=== PATIENT | male | born 1935 | race Caucasian/White ===

== ENCOUNTER 2016-12-11 08:23 | Inpatient (IN) | payer OTHER, MEDICARE ==
--- NOTE | 2016-12-11 08:31 | EDPHY ---
H & P Stated Complaint: cp/epigastric pain ksince last night Time Seen by Provider: 12/11/16 08:30 HPI/ROS: CHIEF COMPLAINT: Epigastric pain. HISTORY OF PRESENT ILLNESS: The patient is an 81-year-old male with an extensive cardiac history who presents with epigastric pain and since 0330 this morning. He has also had worsening exertional shortness of breath since having a cold a few weeks ago that included cough, chest pain, and fever. These symptoms have since resolved. Today he admits associated peripheral edema. No fever, chills, palpitations, vomiting, diarrhea, urinary complaints, headache, lightheadedness. He is anticoagulated on Coumadin. 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 He is awaiting the results of this. REVIEW OF SYSTEMS: Aside from elements discussed in the HPI, a comprehensive 10-point review of systems was reviewed and is negative. PAST MEDICAL HISTORY: Chronic atrial fibrillation, CAD, systolic and diastolic CHF, 5 cardiac stents, left foot amputation. 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 VITAL SIGNS: Reviewed by me. Respiratory rate on monitor while sitting and talking 32-36. GENERAL: Well-developed, well-nourished, resting comfortably in no respiratory distress. HEENT: Atraumatic. Eyes: No icterus, no injection. Mouth: moist mucous membranes. No erythema or lesions. Neck: supple with no adenopathy. LUNGS: Tachypneic. Crackles bibasilarly, right worse than left. No wheezes, rhonchi or rales. CARDIAC: Irregularly irregular, no rubs, murmurs or gallops. ABDOMEN: Soft, nondistended, bowel sounds normal. Epigastric and RUQ tenderness to deep palpation. BACK: No CVA tenderness. EXTREMITIES: No trauma. Range of motion is normal throughout. Right lower extremity: 1+ pitting edema to mid-calf. Left lower extremity: thigh more swollen than the right: L 45cm R 44.5cm. Prosthetic left foot and ankle. NEURO: Alert and oriented, grossly nonfocal. SKIN: Warm and dry, no rash. PSYCHIATRIC: Normal mentation, no agitation. Portions of this note were transcribed by a medical instructor. I personally performed a history, physical exam, medical decision making, and confirmed accuracy of information the transcribed note. Source: Patient Exam Limitations: No limitations - Personal History Current Tetanus/Diphtheria Vaccine: Yes Tetanus Vaccine Date: < 10 years - Medical/Surgical History Hx Asthma: No Hx Chronic Respiratory Disease: No Hx Diabetes: No Hx Cardiac Disease: Yes Hx Renal Disease: No Hx Cirrhosis: No Hx Alcoholism: No Hx HIV/AIDS: No Hx Splenectomy or Spleen Trauma: No Other PMH: [place], Stents, Carotid surg, hip replacement, Foot amputation, HTN, right leg fracture 08/12/15 - Social History Smoking Status: Never smoked Constitutional: Initial Vital Signs Temperature (C) 36.3 C 12/11/16 08:26 Heart Rate 94 12/11/16 08:26 Respiratory Rate 18 12/11/16 08:26 Blood Pressure 161/110 H 12/11/16 08:26 O2 Sat (%) 94 12/11/16 08:26 O2 Delivery Mode Room Air Allergies/Adverse Reactions: Penicillins Allergy (Intermediate, Verified 12/11/16 08:25) BLISTERS Home Medications: Medication Instructions Recorded Aspirin EC [Aspirin EC 81 mg (*)] 81 mg PO DAILY 01/18/15 Clopidogrel Bisulfate [Plavix (*)] 75 mg PO DAILY 01/18/15 Omeprazole [Prilosec 20 mg] 20 mg PO DAILY 01/18/15 Warfarin Sodium [Coumadin 2.5MG 1.25 mg PO FR@2100 01/18/15 (*)] Warfarin Sodium [Coumadin 2.5MG 2.5 mg PO SUMOTUWETHSA@21 01/18/15 (*)] Furosemide [Lasix 20 MG (*)] 20 mg PO DAILY #30 tab 12/13/16 Lisinopril [Zestril 10 mg (*)] 10 mg PO DAILY #30 tab 12/13/16 Metoprolol Tartrate [Lopressor 25 25 mg PO BID #60 tab 12/13/16 mg (*)] Nitroglycerin [Nitrostat 0.4 mg 0.4 mg SL PRN PRN #30 btl 12/13/16 (*)] Spironolactone [Aldactone 25 MG 25 mg PO DAILY #30 tab 12/13/16 (*)] Medical Decision Making - Diagnostics EKG Interpretation: 12-LEAD EKG: Please see the full report in [facility]. My interpretation: Atrial fibrillation, rate 111. Imaging: X-ray chest was obtained. I viewed the images myself on the PACS system. The radiologist interpretation is: Cardiomegaly with bibasilar subsegmental atelectasis and tiny pleural effusions. I discussed the x-ray findings with the patient. ED Course/Re-evaluation: An IV was established and labs ordered. Chest x-ray and EKG obtained. Troponin elevated today at 0.038. BNP elevated at 8090. 40mg IV Lasix administered. Hospitalist paged. [phone]: Consulted with hospitalist. Dr. Garcia accepts admission. Differential Diagnosis: After history and physical examination, the differential for chest pain was considered, including but not limited to, myocardial ischemia, acute coronary syndrome, pulmonary embolus, chest wall pain, pleural inflammation and pulmonary infectious causes. Differential diagnosis for the patient's shortness of breath was considered including but not limited to pulmonary infectious processes, COPD exacerbation, pulmonary emboli, pulmonary edema, congestive heart failure, and cardiac causes. Consult/Admit Bed Type: Dr Garcia, U - Data Points Laboratory Results: Laboratory Results 12/11/16 08:35 12/11/16 08:35 Medications Given: Discontinued Medications Aspirin Buffered (Aspirin Ec) 81 mg PO DAILY [facility] Stop: 06/10/17 08:59 Last Admin: 12/13/16 07:58 Dose: 81 mg Aspirin Buffered (Aspirin Ec) 325 mg PO ONCALL ONE Stop: 12/12/16 09:57 Last Admin: 12/12/16 12:42 Dose: Not Given Clopidogrel Bisulfate (Plavix) 75 mg PO DAILY [facility] Stop: 06/10/17 08:59 Last Admin: 12/13/16 07:58 Dose: 75 mg Diazepam (Valium) 5 mg PO ONCALL ONE Stop: 12/12/16 09:57 Last Admin: 12/12/16 12:42 Dose: Not Given Diphenhydramine HCl (Benadryl) 25 mg PO ONCALL ONE Stop: 12/12/16 09:57 Last Admin: 12/12/16 12:42 Dose: Not Given Furosemide (Lasix Injection) 40 mg IVP EDNOW ONE Stop: 12/11/16 09:28 Last Admin: 12/11/16 09:41 Dose: 40 mg Furosemide (Lasix) 40 mg PO DAILY [facility] Stop: 06/10/17 12:59 Last Admin: 12/13/16 07:58 Dose: 40 mg Hydralazine HCl (Apresoline) 10 mg PO Q8H PRN PRN Reason: htn Stop: 06/09/17 11:29 Last Admin: 12/11/16 12:42 Dose: 10 mg Lisinopril (Zestril) 2.5 mg PO DAILY [facility] Stop: 06/10/17 08:59 Last Admin: 12/12/16 09:42 Dose: 2.5 mg Lisinopril (Zestril) 10 mg PO DAILY [facility] Stop: 06/10/17 08:59 Last Admin: 12/13/16 07:58 Dose: 10 mg Lisinopril (Zestril) 7.5 mg PO ONCE ONE Stop: 12/12/16 14:01 Last Admin: 12/12/16 15:29 Dose: 7.5 mg Metoprolol Tartrate (Lopressor) 25 mg PO BID [facility] Stop: 06/09/17 20:59 Last Admin: 12/13/16 07:58 Dose: 25 mg Miscellaneous Medication (Gi Cocktail) 55 ml PO ONCE ONE Stop: 12/11/16 10:44 Last Admin: 12/11/16 11:20 Dose: 55 ml Pantoprazole Sodium (Protonix) 40 mg PO DAILY [facility] Stop: 06/10/17 08:59 Last Admin: 12/13/16 07:59 Dose: 40 mg Warfarin Sodium (Coumadin) 2.5 mg PO SUMOTUWETHSA@21 [facility] Stop: 06/09/17 20:59 Last Admin: 12/12/16 19:26 Dose: 2.5 mg Departure - Departure Disposition: [facility] Acute Clinical Impression: Pleural effusion, Elevated troponin, Elevated brain natriuretic peptide (BNP) level, Cardiomegaly Condition: Fair Report Scribed for: Lady Madrigal Report Scribed by: Aurelio Flores Date of Report: 12/11/16 Time of Report: 08:38
--- NOTE | 2016-12-11 08:38 | CPEKG ---
Heart Rate: 111 RR Interval: 541 QRSD Interval: 90 QT Interval: 376 QTC Interval: 511 QRS Roxana: 62 T Wave Roxana: 48 EKG Severity - ABNORMAL ECG - EKG Impression: ATRIAL FIBRILLATION, V-RATE 90-135 EKG Impression: PROLONGED QT INTERVAL Electronically Signed By: Lady Madrigal 12-Dec-2016 16:26:28
[2016-12-11 08:52] LABS: % IMMATURE GRANULYOCYTES 0.2 % (0.0-1.1); ABSOLUTE IMMATURE GRANULOCYTES 0.01 10^3/uL (0.00-0.10); ADD DIFF? NO; ADD MORPH? NO; ADD SCAN? NO; ATYPICAL LYMPHOCYTE FLAG 0 (0-99); FRAGMENT RBC FLAG 0 (0-99); HEMATOCRIT 44.4 % (40.0-51.0); HEMOGLOBIN 14.5 g/dL (13.7-17.5); LEFT SHIFT FLG 0 (0-99); LIPEMIA HEMOLYSIS FLAG 80 (0-99); MEAN CELL HEMOGLOBIN 31.7 pg (27.9-34.1); MEAN CELL HEMOGLOBIN CONCENTR. 32.7 g/dL (32.4-36.7); MEAN CELL VOLUME 97.2 fL (81.5-99.8); MEAN PLATELET VOLUME 11.3 fL (8.7-11.7); PLATELET CLUMPS FLAG 30 (0-99); PLATELET COUNT 130 10^3/uL (150-400); RED BLOOD CELL COUNT 4.57 10^6/uL (4.40-6.38); RED CELL DISTRIBUTION WIDTH 15.1 % (11.5-15.2)
[2016-12-11 09:01] LABS: ALANINE AMINOTRANSFERASE 34 IU/L (21-72); ALBUMIN 4.4 g/dL (3.5-5.0); ALKALINE PHOSPHATASE 75 IU/L (38-126); ANION GAP 15 mEq/L (8-16); ASPARTATE AMINOTRANSFERASE 31 IU/L (17-59); BILIRUBIN,TOTAL 1.7 mg/dL (0.1-1.4); BILIRUBIN-CONJUGATED 0.6 mg/dL (0.0-0.5); BILIRUBIN-UNCONJUGATED 1.1 mg/dL (0.0-1.1); CALCIUM 9.3 mg/dL (8.5-10.4); CARBON DIOXIDE 21 mEq/l (22-31); CHLORIDE 106 mEq/L (97-110); CREATININE 0.9 mg/dL (0.7-1.3); GLOMERULAR FILTRATION RATE > 60; GLUCOSE 99 mg/dL (70-100); POTASSIUM 4.6 mEq/L (3.5-5.2); SODIUM 142 mEq/L (134-144); TOTAL PROTEIN 6.8 g/dL (6.3-8.2)
[2016-12-11 09:12] LABS: TROPONIN I 0.038 ng/mL (0-0.034)
[2016-12-11] MEDS ORDERED: FUROSEMIDE 40 MG/4 ML VIAL IVP ONE (09:27)
[2016-12-11] MEDS ORDERED: ACETAMINOPHEN 325 MG TAB PO PRN (10:11)
[2016-12-11] MEDS ORDERED: ONDANSETRON 4 MG/2 ML VIAL IVP PRN (10:11)
[2016-12-11] MEDS ORDERED: ONDANSETRON DISINTEGRATING 4 MG TAB PO PRN (10:11)
[2016-12-11 10:36] LABS: INR 2.42 (0.83-1.16); PROTIME(PATIENT) 26.6 SEC (12.0-15.0)
[2016-12-11 10:37] LABS: APTT 38.3 SEC (23.0-38.0)
[2016-12-11] MEDS ORDERED: MAALOX/LIDO/HYOSC GI COCKTAIL 55 ML BOTTLE PO ONE (10:43)
[2016-12-11] MEDS ORDERED: MAALOX/LIDO/HYOSC GI COCKTAIL 55 ML BOTTLE ONE (11:16)
[2016-12-11] MEDS ORDERED: hydrALAZINE 10 MG TAB PO PRN ×2 (11:21→20:40)
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
[2016-12-11] MEDS ORDERED: FUROSEMIDE 40 MG/4 ML VIAL IVP SCH (15:00)
--- NOTE | 2016-12-11 15:18 | ECHO ---
[id number] + + [address] : : [place] [address] : : [phone] + Adult Echocardiographic Report + ----+ :Name: FLORESRANDALADDY GStudy Date: 12/11/2016 02:09 PM : : Hospital Admission Number: [id number] Location: 205: :: 1935 Gender: Male Height: 72 in : :Age: 81 yrs Race: WH Weight: 161 lb : :Reason For Study: New LE edema : : BSA: 1.9 meters2 : :History: CAD : + ----+ MMode/2D Measurements \T\ Calculations IVSd: 1.2 cm RVDd: 3.6 cm FS: 14.7 % MV Diam: 2.9 cm LVPWd: 1.3 cm LVIDd: 5.3 cm EDV(Teich): 133.4 ml LVIDs: 4.5 cm ESV(Teich): 92.0 ml EF(Teich): 31.0 % LVOT diam: 2.1 cm LVLd ap4: 7.0 cm SV(MOD-sp4): 36.0 ml LVOT area: 3.5 cm2EDV(MOD-sp4): 102.0 ml LVLs ap4: 6.4 cm ESV(MOD-sp4): 66.0 ml EF(MOD-sp4): 35.3 % Normal Measurement Values: + + :LVIDd (3.5-5.7cm) IVSd (0.6-1.1cm) LVPWd (0.6-1.1cm) Aortic Root (2.0-3.7cm)Left Atrium (1.5-4.0cm): :LV Vol(d) (76-115ml) LV Vol(s) (29-48ml) Ejec Fraction (50-65%)PV Jose A (0.6- 1.2m/s) TV Jose A (0.4-1.0m/s) : :MV E Jose A (0.8-1.0m/s)MV A Jose A (0.3-1.0m/s)LVOT Jose A (0.7-1.2m/s) Asc Ao Jose A ( 0.9-1.8m/s) : + + Doppler Measurements \T\ Calculations MV E max jose a: MV V2 max: Ao mean PG: LV V1 mean P.1 cm/sec 83.3 cm/sec 1.0 mmHg 0.82 mmHg MV dec time: MV max P.8 mmHg Ao V2 mean: LV V1 mean: 0.11 sec MV V2 mean: 48.6 cm/sec 42.7 cm/sec 48.5 cm/sec Ao V2 VTI: 12.3 cmLV V1 VTI: MV mean P.1 mmHg DAYANA(I,D): 3.1 cm2 11.0 cm MV V2 VTI: 16.9 cm MV area (1 diam): 6.4 cm2 MVA(VTI): 2.3 cm2 MV Flow area(1diam): 6.4 cm2 MR max jose a: MR(RF 1 diam): SV(MV 1 diam): PA V2 max: 504.1 cm/sec 24.4 % 108.3 ml 50.4 cm/sec MR max PG: SI(MV 1 diam): PA max P.7 mmHg 55.7 ml/m2 1.0 mmHg SV(LVOT): 38.6 ml PI end-d jose a: TR max jose a: RF(MV,LVOT) 190.0 cm/sec 252.5 cm/sec (1diam): 0.64 TR max P.5 mmHg RAP systole: 10.0 mmHg RVSP(TR): 35.5 mmHg Left Ventricle The left ventricle is borderline dilated. There is mild concentric left ventricular hypertrophy. Moderate to severely reduced LV systolic function with a LVEF of 30% and focal severe inferior-posterior hypokinesis. No LV thrombus seen. Right Ventricle Borderline right ventricular enlargement. The right ventricular systolic function is normal. Atria Moderate LAE noted. Severe KINGA noted. The interatrial septum is intact with no evidence for an atrial septal defect. Mitral Valve Borderline anterior MV prolapse with moderate to severe MR noted. There is no mitral valve stenosis. Tricuspid Valve The tricuspid valve is normal in structure and function. There is no tricuspid stenosis. Mild to moderate TR noted. Aortic Valve Mild aortic valve sclerosis. There is no aortic stenosis. There is no aortic insufficiency. Pulmonic Valve The pulmonic valve is normal in structure and function. There is no pulmonic valvular stenosis. Mild to moderate pulmonic valvular regurgitation. Great Vessels The aortic root is normal size. Pericardium/Pleural trivial pericardial effusion. Mild to moderate pleural effusion noted. Conclusion A complete two-dimensional transthoracic echocardiogram was performed (2D, M-mode, Doppler and color flow Doppler). 1)Moderate to severely reduced LV systolic function with a LVEF of 30% and focal wall motions as described above. 2)Mild concentric LVH noted. 3)Moderate left atrial and moderate to severe right atrial enlargement(s). 4)Aortic valve sclerosis without stenosis or insufficiency. 5)Borderline anterior MV prolapse with moderate to severe MR. 6)Mild to moderate TR noted. Unable to accurately assess PA pressures. 7)Mild to moderate PI noted. 8)Trivial pericardial effusion. 9)Mild to moderate pleural effusion. Final Reading Physician: Bernabe Torres electronically signed on 12/11/2016 03:17 PM Ordering Physician: Gardenia Garcia Performed By: Neal Kaufman, RDCS
[2016-12-11] MEDS: METOPROLOL TARTRATE 25 MG TAB PO SCH (20:00)
[2016-12-11] MEDS: WARFARIN SODIUM 2.5 MG TAB PO SCH (20:00)
[2016-12-11] MEDS ORDERED: METOPROLOL TARTRATE 25 MG TAB PO SCH ×2 (21:00)
[2016-12-12 05:31] LABS: INR 2.37 (0.83-1.16); PROTIME(PATIENT) 26.1 SEC (12.0-15.0)
[2016-12-12 05:36] LABS: ANION GAP 13 mEq/L (8-16); CALCIUM 9.2 mg/dL (8.5-10.4); CARBON DIOXIDE 25 mEq/l (22-31); CHLORIDE 105 mEq/L (97-110); CREATININE 1.2 mg/dL (0.7-1.3); GLOMERULAR FILTRATION RATE 58; GLUCOSE 87 mg/dL (70-100); MAGNESIUM 2.1 mg/dL (1.6-2.3); POTASSIUM 4.2 mEq/L (3.5-5.2); SODIUM 143 mEq/L (134-144)
--- NOTE | 2016-12-12 08:26 | CPEKG ---
Heart Rate: 102 RR Interval: 588 QRSD Interval: 88 QT Interval: 384 QTC Interval: 501 QRS [place]: 55 T Wave [place]: 43 EKG Severity - ABNORMAL ECG - EKG Impression: ATRIAL FIBRILLATION, V-RATE 84-138 EKG Impression: VENTRICULAR PREMATURE COMPLEX EKG Impression: PROLONGED QT INTERVAL Electronically Signed By: Lady Madrigal 12-Dec-2016 16:26:34
[2016-12-12] MEDS ORDERED: LISINOPRIL 2.5 MG TAB PO SCH (09:00)
[2016-12-12] MEDS ORDERED: NON-FORMULARY NEW DRUG (Omeprazole [Prilosec 20 Mg] 20 MG) PO SCH (09:00)
[2016-12-12] MEDS ORDERED: FUROSEMIDE 20 MG/2 ML VIAL IVP SCH (09:00)
[2016-12-12] MEDS: ASPIRIN EC 81 MG TAB PO SCH (09:41)
[2016-12-12] MEDS: CLOPIDOGREL BISULFATE 75 MG TAB PO SCH (09:42)
[2016-12-12] MEDS: PANTOPRAZOLE SODIUM 40 MG TAB PO SCH (09:42)
[2016-12-12] MEDS ORDERED: diphenhydrAMINE 25 MG CAP PO ONE (09:56)
[2016-12-12] MEDS ORDERED: DIAZEPAM 5 MG TAB PO ONE (09:56)
[2016-12-12] MEDS ORDERED: ASPIRIN EC 325 MG TAB PO ONE (09:56)
[2016-12-12] MEDS ORDERED: NITROGLYCERIN 0.4 MG BTL SL PRN ×2 (09:56→12:53)
[2016-12-12] MEDS ORDERED: TEMAZEPAM 15 MG CAP PO PRN (09:56)
[2016-12-12] MEDS ORDERED: LIDOCAINE 1% 30 ML SDV ONE (11:38)
[2016-12-12] MEDS ORDERED: VERAPAMIL 5 MG/2 ML VIAL ONE (11:39)
[2016-12-12] MEDS ORDERED: IOPAMIDOL (ISOVUE-370) 150 ML BTL IV ONE ×2 (11:39→12:31)
[2016-12-12] MEDS ORDERED: MIDAZOLAM 2 MG/2 ML VIAL ONE (11:39)
[2016-12-12] MEDS ORDERED: HEPARIN 10,000 UNIT/10 ML MDV ONE (11:39)
[2016-12-12] MEDS ORDERED: fentaNYL 100 MCG/2 ML INJ ONE (11:39)
[2016-12-12] MEDS ORDERED: DIAZEPAM 5 MG TAB ONE (11:44)
[2016-12-12] MEDS ORDERED: FAMOTIDINE 20 MG TAB ONE (11:44)
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
[2016-12-12] MEDS ORDERED: ATROPINE SULFATE 1 MG/10 ML SYR IVP PRN (12:53)
[2016-12-12] MEDS ORDERED: LISINOPRIL 10 MG TAB PO SCH (12:56)
[2016-12-12 13:06] LABS: CHOLESTEROL 128 mg/dL (140-220); CHOLESTEROL/HDL RATIO 3.56 RATIO (1.00-4.97); HIGH DENSITY LIPOPROTEIN 36 mg/dL (40-65); LDL/HDL RATIO 2.17 RATIO (1.00-3.64); LOW DENSITY LIPOPROTEIN 78 mg/dL (80-100); NON-HIGH DENSITY LIPOPROTEIN 92 mg/dL (90-129); TRIGLYCERIDE 74 mg/dL (40-150); VERY LOW DENSITY LIPOPROTEINS 14 mg/dL (8-25)
--- NOTE | 2016-12-12 13:14 | PDDXCAT ---
Diagnostic Cath Note - . Date: 12/12/16 Architectural Technician: Sixto Indication: Serial noninvasive testing w progressively worsening abnormalities High-risk criteria on non-invasive testing: severe resting left ventricular dysfunction (LVEF<35%) - Procedure Access: left wrist Procedure: left heart catheterization, coronary angiography, left ventriculogram - Materials Left Heart Cath size: 5F Left Heart Cath materials: JL3.5, JR4.0, pigtail Right Heart Cath size: 5F - Findings-Left Heart Catheterization LM: Normal caliber. Appropriate bifurcation into the left anterior descending and circumflex. No obstructive lesions. LAD: Moderate caliber. Transapical vessel. Single moderate-sized dagonal branch. Stents visualized in the proximal midportion. The diagonal branch is jailed by stent with a high-grade ostial lesion. LCX: Non dominant. 2 obtuse marginal branches. Diffuse luminal irregularities. Stents are visualized in the AV groove portion of the circumflex. Immediately prior to the proximal stent there is a 30% lesion. RCA: Dominant. Single PDA with a small posterolateral arcade. Diffuse proximal disease up to 50%. Midvessel stenosis up to 80%. Collaterals noted from the left system. EDP: 25 mmHg. LVEF: Severe global hypokinesis. Ejection fraction of 15-20%. Akinetic diaphragmatic segment. At least 3+ mitral insufficiency. Wall motion: As above. Estimated blood loss: <50ml Closure method: TR Band Assessment: 1. Diffuse epicardial coronary disease with previously placed stents in the LAD and circumflex that are widely patent. There is high-grade disease involving the ostial segment of a moderate caliber diagonal and the midportion of the right coronary artery. 2. Severe left ventricular dysfunction with an ejection fraction below 20% associated with severe global hypokinesis and akinesis of the diaphragmatic segment. 3. 3+ or greater mitral insufficiency. 4. Elevated end-diastolic pressure at 25 mmHg. Plan: At this point, the degree of LV dysfunction exceeds that of the obstructive coronary disease. Does have significant MR. Therefore, the decision was made to manage his coronary disease medically. We will further investigate his mitral insufficiency. Intervention: None. Patient Problems: Problems Problem Status Onset Chronic Disease Mgmt/Transitional Care Acute CAD (coronary artery disease) Acute Kidney stone on left side Acute Flank pain Acute Gross hematuria Acute C. difficile diarrhea Acute 12/21/15 Pleural effusion Acute Elevated troponin Acute Elevated brain natriuretic peptide (BNP) level Acute Cardiomegaly Acute
[2016-12-12] MEDS ORDERED: LISINOPRIL 2.5 MG TAB PO ONE (14:00)
[2016-12-12] MEDS: FUROSEMIDE 40 MG TAB PO SCH (15:29)
[2016-12-12] MEDS: METOPROLOL TARTRATE 25 MG TAB PO SCH ×2 (15:30→19:26)
--- NOTE | 2016-12-12 16:27 | HOSPPROG ---
Hospitalist Progress Note Assessment/Plan: #Decompensated systolic HF/severe MR -underwent cath today showing EF 20% and global hypokinesis -cont Lasix, BB, increased ACEI #CAD: LAD/LCx stents patent. High-grade disease of diagonal and mid-RCA. Medically manage CAD at this point. Cont ASA, statin, Plavix BB #LE edema: nearly resolved with diuresis #Accelerated HTN: Lisinopril increased today #RUQ/epigastric pain: LFTs WNL, U/S with gallstones, but no e/o cholecystitis. Would not opt for surgical intervention at this time with decompensated HF. FU surgery outpatient #GERD: PPI #Permanent atrial fibrillation: better rate-control with increase in BB. INR at goal #Diet: cardiac, 2L fluids #DVT ppx: on coumadin #Disp: warrants inpatient admission given acute hypoxia, decompensated HF requiring monitored diuresis, telemetry Subjective: No CP. SOB and LE swelling improved. Objective: Vital Signs Temp Pulse Resp BP Pulse Ox 36.5 C 77 14 147/99 H 98 12/12/16 08:00 12/12/16 15:30 12/12/16 15:18 12/12/16 15:30 12/12/16 15:18 Laboratory Results 12/12/16 04:08 12/11/16 12/12/16 12/13/16 05:59 05:59 05:59 Intake Total 500 Output Total 3665 475 Balance -3165 -475 PT 26.1 SEC (12.0-15.0) H 12/12/16 04:08 INR 2.37 (0.83-1.16) H 12/12/16 04:08 - Physical Exam Constitutional: no apparent distress Eyes: PERRL Ears, Nose, Mouth, Throat: moist mucous membranes, hearing normal Cardiovascular: irregularly irregular Respiratory: no respiratory distress, reduced air movement Gastrointestinal: normoactive bowel sounds, tenderness (mild in RUQ and epigastrum. No rebound/guarding) Skin: warm Musculoskeletal: full muscle strength Neurologic: AAOx3, CN II-XII Intact Psychiatric: interacting appropriately ICD10 Worksheet Patient Problems: Problems Problem Status Onset Cardiomegaly Acute Chronic Disease Mgmt/Transitional Care Acute Elevated brain natriuretic peptide (BNP) level Acute Elevated troponin Acute Pleural effusion Acute C. difficile diarrhea Acute 12/21/15 CAD (coronary artery disease) Acute Flank pain Acute Gross hematuria Acute Kidney stone on left side Acute
[2016-12-12] MEDS: WARFARIN SODIUM 2.5 MG TAB PO SCH (19:26)
[2016-12-13 04:36] LABS: HEMATOCRIT 41.7 % (40.0-51.0); HEMOGLOBIN 13.3 g/dL (13.7-17.5); MEAN CELL HEMOGLOBIN 30.6 pg (27.9-34.1); MEAN CELL HEMOGLOBIN CONCENTR. 31.9 g/dL (32.4-36.7); MEAN CELL VOLUME 95.9 fL (81.5-99.8); RED BLOOD CELL COUNT 4.35 10^6/uL (4.40-6.38); RED CELL DISTRIBUTION WIDTH 14.9 % (11.5-15.2)
[2016-12-13 04:50] LABS: INR 2.41 (0.83-1.16); PROTIME(PATIENT) 26.5 SEC (12.0-15.0)
[2016-12-13 04:59] LABS: ANION GAP 9 mEq/L (8-16); CALCIUM 8.7 mg/dL (8.5-10.4); CARBON DIOXIDE 27 mEq/l (22-31); CHLORIDE 106 mEq/L (97-110); CREATININE 1.2 mg/dL (0.7-1.3); GLOMERULAR FILTRATION RATE 58; GLUCOSE 85 mg/dL (70-100); SODIUM 142 mEq/L (134-144)
[2016-12-13] MEDS: FUROSEMIDE 40 MG TAB PO SCH (07:58)
[2016-12-13] MEDS: CLOPIDOGREL BISULFATE 75 MG TAB PO SCH (07:58)
[2016-12-13] MEDS: METOPROLOL TARTRATE 25 MG TAB PO SCH (07:58)
[2016-12-13] MEDS: ASPIRIN EC 81 MG TAB PO SCH (07:58)
[2016-12-13] MEDS: PANTOPRAZOLE SODIUM 40 MG TAB PO SCH (07:59)
--- NOTE | 2016-12-13 10:40 | SOAPPROG ---
FAITH Progress Note Assessment/Plan: Assessment: Mr. Sanchez is an 81-year-old male with history of known CAD and previous stenting of both the LAD and circumflex systems. He is currently admitted with congestive heart failure. After medical therapy he appears to be very well compensated. Yesterday he underwent coronary angiography which demonstrated an isolated high-grade lesion in the right coronary artery and "jailed" diagonal branch. His ejection fraction was below 20% . Ventriculography indicated at least 3+ mitral regurgitation which is confirmed by echocardiography. Here he has been hemodynamically stable. He has manifested nonsustained ventricular tachycardia on telemetry. Today I spent time with him discussing his cardiomyopathy especially in light of his nonsustained VT. We talked about more aggressive means of therapy to include defibrillator implantation and potentially surgery as it relates to his mitral regurgitation . He states that he really is not interested in more advanced forms of therapy. He prefers a more conservative approach to include only medical therapy that offers him more quality of life rather than simply quantity of life. Plan: 1. At this point, I think that he can be discharged home. 2. I did reduce his Lasix down to 20 mg daily. I have added Aldactone 25 mg daily. 3. He will continue his other medications including systemic anticoagulation. 4. He can follow up with Dr. Berg from [facility]. I would like him to be seen within the next week. 12/13/16 10:37 Subjective: He states that he is feeling well. He slept well last night. He is having minimal pain at his left wrist access site. In reviewing telemetry he has been in atrial fibrillation. Occasionally, at night he has bradycardia with heart rates into the 40s and 50s. He did have an episode of nonsustained ventricular tachycardia without symptoms. Objective: Vital Signs Temp Pulse Resp BP Pulse Ox 36.6 C 77 18 139/77 H 97 12/13/16 07:57 12/13/16 07:58 12/13/16 07:57 12/13/16 07:58 12/13/16 07:57 Laboratory Results 12/13/16 03:34 12/13/16 03:34 12/12/16 12/13/16 12/14/16 05:59 05:59 05:59 Intake Total 500 550 Output Total 2071 1425 150 [facility] -3165 -875 -150 PT 26.5 SEC (12.0-15.0) H 12/13/16 03:34 INR 2.41 (0.83-1.16) H 12/13/16 03:34 Physical Exam - Physical Exam General Appearance: WD/WN, no apparent distress Neck: non-tender, full range of motion Respiratory: lungs clear Cardiac/Chest: irregularly irregular, other ( His right wrist is mildly ecchymotic. There is no hematoma.) Peripheral Pulses: 2+: carotid (R), carotid (L) Abdomen: non-tender, soft Neuro/Psych: alert, normal mood/affect, oriented x 3 ICD10 Worksheet Patient Problems: Problems Problem Status Onset Chronic Disease Mgmt/Transitional Care Acute CAD (coronary artery disease) Acute Kidney stone on left side Acute Flank pain Acute Gross hematuria Acute C. difficile diarrhea Acute 12/21/15 Pleural effusion Acute Elevated troponin Acute Elevated brain natriuretic peptide (BNP) level Acute Cardiomegaly Acute
[2016-12-13 11:29] VITALS: BP 102/66; PULSE 74; RESP 14; TEMP 97.3; O2SAT 93
--- NOTE | 2016-12-13 14:06 | GDS ---
DISCHARGE DIAGNOSES: 1. Coronary artery disease. 2. Acutely decompensated systolic heart failure. 3. Severe mitral regurgitation. 4. Accelerated hypertension. 5. Right upper quadrant/epigastric pain. 6. Gastroesophageal reflux disease. 7. Permanent atrial fibrillation. PROCEDURES: Cardiac catheterization, 12/12/2016: Diffuse epicardial coronary artery disease with p reviously placed stents in the LAD and circumflex, widely patent. High-grade disease ostial segment of diagonal and mid portion of the right coronary artery. Severe LV dysfunction with EF below 20%, with severe global hypokinesis. 3+ mitral insufficiency. HISTORY OF PRESENT ILLNESS: The patient is an 81-year-old male, with history of CAD status post delaney nting to the left circumflex and LAD, presenting with shortness of breath and volume overload for th e past few weeks. He initially had a cold 3 weeks ago, with cough, sputum production, nasal congest ion. Most of those symptoms improved. He now just has a minimum cough that is nonproductive. He d id not go to the doctor but the shortness of breath he had persisted, and is now occurring with rest and exertion. Has also had lower extremity edema for the past 3 weeks. He also complained of dull epigastric pain day prior to admission, without associated radiation, nausea, vomiting. Denied diz ziness or lightheadedness. HOSPITAL COURSE BY PROBLEM: 1. Acutely decompensated systolic heart failure (EF less than 20%)/severe mitral regurgitation. Mat spann was symptomatic and had evidence of volume overload. He diuresed well with IV Lasix and was t ransitioned to 20 daily. Increased lisinopril to 10 mg daily and metoprolol to 25 mg daily. Apprec iate consultation by Dr. Henson. The patient did have evidence of nonsustained VT this morning, and Dr. Henson talked about more aggressive means including defibrillator, possibly surgery for his socorro l regurgitation. At this time, patient is not really interested in advanced forms of intervention, and would like to focus on medical therapy. Also added Aldactone. Patient is to follow up with Dr. Berg in a week. 2. CAD: The patient underwent a cardiac cath that demonstrated widely patent left circumflex LAD s tents. There was an isolated high-grade lesion in the right coronary artery and jailed diagonal bra nch. Again patient chooses for medical management. Will continue Plavix and aspirin. Still unclea r why patient is not on a statin. I will have him talk with Dr. Berg. 3. Acute hypoxic respiratory failure: Secondary to volume overload. This resolved with IV diuresi s. 4. Permanent atrial fibrillation: Patient is tachycardic to 90s to 1-teens on admission. Increase d beta-anayeli to 25 twice daily. He is therapeutic on his Coumadin. 5. Right upper quadrant/epigastric tenderness. LFTs and lipase were within normal. Evidence of ga llstones on ultrasound without cholecystitis. Will monitor now as the patient is a poor surgical ca ndidate with acutely decompensated heart failure. 6. Indeterminate troponin: Secondary to volume overload and atrial fibrillation. DISPOSITION: Patient is stable for discharge. MEDICATIONS: New medications: Aldactone, Lasix. Changed medications: Lisinopril 10 mg a day, metoprolol 25 mg twice daily. FOLLOWUP: Dr. Berg in 1 week. /[id number]/MODL
[2016-12-14] MEDS ORDERED: SPIRONOLACTONE 25 MG TAB PO SCH (09:00)
[2016-12-14] MEDS ORDERED: FUROSEMIDE 40 MG TAB PO SCH (09:00)
[2016-12-16] MEDS ORDERED: WARFARIN SODIUM 2.5 MG TAB PO SCH (21:00)
== END 2016-12-13 14:35 | disposition home or self-care (01) | DRG 286 ==
LOC: F2W 11:26
PROVIDERS: ADMIT Internal Medicine; ATTEND Internal Medicine
PROC: B2111ZZ Fluoroscopy of Multiple Coronary Arteries using Low Osmolar Contrast (ICD-10-PCS; principal; 2016-12-12)
PROC: B2151ZZ Fluoroscopy of Left Heart using Low Osmolar Contrast (ICD-10-PCS; principal; 2016-12-12)
PROC: 4A023N7 Measurement of Cardiac Sampling and Pressure, Left Heart, Percutaneous Approach (ICD-10-PCS; principal; 2016-12-12)
DX: I50.21 Acute systolic (congestive) heart failure (principal); I25.10 Atherosclerotic heart disease of native coronary artery without angina pectoris; I34.0 Nonrheumatic mitral (valve) insufficiency; I36.1 Nonrheumatic tricuspid (valve) insufficiency; K80.20 Calculus of gallbladder without cholecystitis without obstruction; J96.01 Acute respiratory failure with hypoxia; I48.2 Chronic atrial fibrillation; I27.2 Other secondary pulmonary hypertension; E78.5 Hyperlipidemia, unspecified; I73.9 Peripheral vascular disease, unspecified; K21.9 Gastro-esophageal reflux disease without esophagitis; Z96.641 Presence of right artificial hip joint; Z87.442 Personal history of urinary calculi; I25.2 Old myocardial infarction; Z89.432 Acquired absence of left foot; Z95.5 Presence of coronary angioplasty implant and graft; Z79.01 Long term (current) use of anticoagulants
CPT/HCPCS: J1644; J2250; J3010; Q9967

== ENCOUNTER 2018-09-14 20:24 | Inpatient (IN) | payer OTHER, MEDICARE ==
--- NOTE | 2018-09-14 21:04 | EDPHY ---
HPI/HX/ROS/PE/MDM Narrative: CHIEF COMPLAINT: Right upper abdominal pain HPI: The patient is an anticoagulated (Coumadin) 82 y/o male with a history of an ID , cardiac stents, carotid surgery, and hypertension complaining of intermittent , sharp, right upper abdominal pain, onset 2 days ago. Today the pain significantly worsened, so he decided to present to the emergency department. Moving exacerbates his pain, but eating has no effect on it. He states that nothing makes the pain better. He denies history of abdominal surgery or recent trauma/falls. No headache, chest pain, shortness of breath, abdominal pain, urinary or bowel complaints, numbness, paresthesias, fevers. REVIEW OF SYSTEMS: Aside from elements discussed in the HPI, a comprehensive 10 system review of systems is otherwise negative. PMH: ID, cardiac stents, carotid surgery, hypertension, hip replacement, foot amputation, right leg fracture SOCIAL HISTORY: Lives in [place], retired, family at bedside PHYSICAL EXAM: General: Patient is alert, in no acute distress. ENT: Eyes are normal to inspection. ENT inspection normal. Neck: Normal inspection. Full range of motion. Respiratory: No respiratory distress. Breath sounds normal bilaterally. Cardiovascular: Regular rate and rhythm. Strong peripheral pulses. Normal cap refill. Abdomen: Severe right upper quadrant tenderness to palpation. There are no peritoneal signs. There are normal bowel sounds. Back: Normal to inspection. No tenderness to palpation. Skin: Normal color. No rash. Warm and dry. Extremities: Normal appearance. Full range of motion. Neuro: Oriented x3. Normal motor function. Normal sensory function. (Esteban Bull) ED Course: 2128: EKG was ordered and interpreted by myself. Please see [employer] [employer] system for official reading. 2135: Reassessed patient and discussed EKG findings. He is comfortable with plan for abdominal US. He is denying pain medications at this time. 2299: US read by Dr. Lea as positive for multiple gallstones, sono murphys sign, pericholecystic fluid and wall thickening. Dr. Euceda consulted. Patient signed over to Dr. King. (Esteban Bull) MDM: 2330: Patient was seen by Dr. Euceda. Request admission to the hospitalist service. I will consult the hospitalist service for this patient. Plan for treatment for acute cholecystitis. Most likely go to the OR tomorrow. However INR was 2.[address] Euceda would like INR 1.5 will below. Additionally the patient has a penicillin allergy Additionally has had an allergy to clindamycin before. 1204AM: Dr. Rivera accepts. IV Dilaudid ordered for pain control 0.5 mg. (Maxi King) - Data Points Imaging Results: Imaging Impressions Chest X-Ray 09/14/18 21:03 Impression: 1. Mild cardiomegaly with atherosclerotic aorta. 2. No pneumonia or congestive heart failure. Abdomen Ultrasound 09/14/18 21:45 Impression: 1. Acute cholecystitis with cholelithiasis, gallbladder wall thickening, positive ultrasound Benjamin sign, and pericholecystic fluid. 2. No biliary ductal dilation. 3. Questionable right renal pelvis mass for which follow-up CT abdomen with contrast enhancement, CT urogram protocol is recommended. Findings and recommendations discussed with Emergency Department physician, Esteban Bull MD at 23:00 hour, 09/14/2018. Final report concurs with initial preliminary interpretation. Laboratory Results: Laboratory Results 09/14/18 21:15 09/14/18 21:15 09/14/18 09/14/18 09/14/18 21:23 21:15 21:15 WBC 5.31 10^3/uL 10^3/uL (3.80-9.50) RBC 4.57 10^6/uL 10^6/uL (4.40-6.38) Hgb 15.7 g/dL g/dL (13.7-17.5) Hct 47.2 % % (40.0-51.0) MCV 103.3 fL H fL (81.5-99.8) MCH 34.4 pg H pg (27.9-34.1) MCHC 33.3 g/dL g/dL (32.4-36.7) RDW 13.1 % % (11.5-15.2) Plt Count 136 10^3/uL L 10^3/uL (150-400) MPV 10.4 fL fL (8.7-11.7) Neut % (Auto) 76.4 % H % (39.3-74.2) Lymph % (Auto) 10.2 % L % (15.0-45.0) Addison % (Auto) 10.5 % % (4.5-13.0) Eos % (Auto) 2.1 % % (0.6-7.6) Baso % (Auto) 0.6 % % (0.3-1.7) Nucleat RBC Rel Count 0.0 % % (0.0-0.2) Absolute Neuts (auto) 4.06 10^3/uL 10^3/uL (1.70-6.50) Absolute Lymphs (auto) 0.54 10^3/uL L 10^3/uL (1.00-3.00) Absolute Monos (auto) 0.56 10^3/uL 10^3/uL (0.30-0.80) Absolute Eos (auto) 0.11 10^3/uL 10^3/uL (0.03-0.40) Absolute Basos (auto) 0.03 10^3/uL 10^3/uL (0.02-0.10) Absolute Nucleated RBC 0.00 10^3/uL 10^3/uL (0-0.01) Immature Gran % 0.2 % % (0.0-1.1) Immature Gran # 0.01 10^3/uL 10^3/uL (0.00-0.10) Platelet Estimate Not Reported Sodium 140 mEq/L mEq/L (135-145) Potassium 3.9 mEq/L mEq/L (3.5-5.2) Chloride 102 mEq/L mEq/L (97-110) Carbon Dioxide 27 mEq/l mEq/l (22-31) Anion Gap 11 mEq/L mEq/L (6-14) BUN 31 mg/dL H mg/dL (7-23) Creatinine 1.6 mg/dL H mg/dL (0.7-1.3) Estimated GFR 42 Glucose 76 mg/dL mg/dL (70-100) Calcium 9.3 mg/dL mg/dL (8.5-10.4) Total Bilirubin 0.9 mg/dL mg/dL (0.1-1.4) Conjugated Bilirubin 0.4 mg/dL mg/dL (0.0-0.5) Unconjugated Bilirubin 0.5 mg/dL mg/dL (0.0-1.1) AST 28 IU/L IU/L (17-59) ALT 25 IU/L IU/L (21-72) Alkaline Phosphatase 52 IU/L IU/L (38-126) POC Troponin I 0.02 ng/mL ng/mL (0.00-0.08) Total Protein 7.4 g/dL g/dL (6.3-8.2) Albumin 4.9 g/dL g/dL (3.5-5.0) Lipase 78 IU/L IU/L (23-300) Medications Given: Discontinued Medications Hydromorphone HCl (Dilaudid) 0.5 mg IVP EDNOW ONE Stop: 09/14/18 23:54 Last Admin: 09/14/18 23:59 Dose: 0.5 mg Sodium Chloride (Ns) 500 mls @ 0 mls/hr IV ONCE ONE PRN Reason: Wide Open Stop: 09/14/18 23:40 Last Admin: 09/14/18 23:50 Dose: 500 mls Point of Care Test Results: Chemistry 09/14/18 21:23 POC Troponin I 0.02 ng/mL ng/mL (0.00-0.08) General Time Seen by Provider: 09/14/18 21:03 Initial Vital Signs: Initial Vital Signs Temperature (C) 36.5 C 09/14/18 20:45 Heart Rate 64 09/14/18 20:45 Respiratory Rate 16 09/14/18 20:45 Blood Pressure 139/68 H 09/14/18 20:45 O2 Sat (%) 95 09/14/18 20:45 O2 Delivery Mode Room Air Allergies/Adverse Reactions: Penicillins Allergy (Intermediate, Verified 12/11/16 08:25) BLISTERS clindamycin Allergy (Verified 09/14/18 23:40) other antibiotics Allergy (Uncoded 09/14/18 23:40) Home Medications: Medication Instructions Recorded Clopidogrel Bisulfate [Plavix (*)] 75 mg PO DAILY 01/18/15 Omeprazole [Prilosec 20 mg] 20 mg PO DAILY 01/18/15 Warfarin Sodium [Coumadin 2.5MG 1.25 mg PO FR@2100 01/18/15 (*)] Warfarin Sodium [Coumadin 2.5MG 2.5 mg PO SUMOTUWETHSA@21 01/18/15 (*)] Furosemide [Lasix 20 MG (*)] 20 mg PO DAILY #30 tab 12/13/16 Lisinopril [Zestril 10 mg (*)] 10 mg PO DAILY #30 tab 12/13/16 Metoprolol Tartrate [Lopressor 25 25 mg PO BID #60 tab 12/13/16 mg (*)] Nitroglycerin [Nitrostat 0.4 mg 0.4 mg SL PRN PRN #30 btl 12/13/16 (*)] Spironolactone [Aldactone 25 MG 25 mg PO DAILY #30 tab 12/13/16 (*)] Departure - Departure Disposition: [facility] Inpatient Acute Clinical Impression: Acute cholecystitis Condition: Serious Report Scribed for: Esteban Bull Report Scribed by: Michelle Gao Date of Report: 09/14/18 Time of Report: 21:04 Physician Review and Approval Statement: Portions of this note were transcribed by an ED scribe. I personally performed the history, physical exam, and medical decision making; and confirm the accuracy of the information in the transcribed note.
[2018-09-14 22:08] LABS: PLATELET COUNT 136 10^3/uL (150-400)
--- NOTE | 2018-09-14 22:40 | CPEKG ---
Test Reason : OPEN Blood Pressure : / mmHG Vent. Rate : 076 BPM Atrial Rate : 094 BPM P-R Int : 188 ms QRS Dur : 105 ms QT Int : 443 ms P-R-T Axes : 000 007 -24 degrees QTc Int : 499 ms Atrial fibrillation Ventricular bigeminy Borderline T abnormalities, inferior leads Borderline prolonged QT interval Confirmed by Esteban Bull ([id number] on 09/14/2018 10:40:11 PM Referred By: Confirmed By:Esteban Bull
[2018-09-14] MEDS ORDERED: NS 500 ML IV ONE (23:39)
[2018-09-14] MEDS ORDERED: NS 1,000 ML IV SCH (23:45)
[2018-09-14] MEDS ORDERED: HYDROmorphONE/DILAUDID 1 MG/ML INJ IVP ONE (23:53)
[2018-09-14] MEDS ORDERED: ONDANSETRON 4 MG/2 ML VIAL IVP PRN (23:54)
[2018-09-14] MEDS ORDERED: HYDROmorphONE/DILAUDID 1 MG/ML INJ IVP PRN (23:54)
[2018-09-14] MEDS ORDERED: ONDANSETRON DISINTEGRATING 4 MG TAB PO PRN (23:54)
[2018-09-14] MEDS ORDERED: ACETAMINOPHEN 325 MG TAB PO PRN (23:54)
[2018-09-15] MEDS ORDERED: diphenhydrAMINE 25 MG CAP PO PRN (00:35)
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
[2018-09-15] MEDS ORDERED: METOPROLOL TARTRATE 5 MG/5 ML INJ IVP ONE (01:04)
[2018-09-15] MEDS: HYDROCODONE/APAP 5/325 TAB PO PRN ×2 (01:32→21:54)
[2018-09-15 05:10] LABS: INR 2.29 (0.83-1.16); PROTIME(PATIENT) 25.2 SEC (12.0-15.0)
[2018-09-15 05:11] LABS: PLATELET COUNT 117 10^3/uL (150-400)
[2018-09-15] MEDS ORDERED: NITROGLYCERIN 0.4 MG BTL SL PRN (08:28)
[2018-09-15] MEDS ORDERED: FUROSEMIDE 20 MG/2 ML VIAL IVP ONE ×2 (08:31→12:00)
[2018-09-15] MEDS ORDERED: PHYTONADIONE 2.5 MG/2.5 ML ORAL UDL PO ONE (08:38)
--- NOTE | 2018-09-15 08:46 | HOSPPROG ---
Hospitalist Progress Note Assessment/Plan: 82M with ICM, MR presents with acute cholecystitis. Discussed with patient that he is high risk. Cards peripherally involved. # acute cholecystitis - needs urgent surgery - sunita, Dr Euceda to take to the OR today # pcn, clinda allergy - reports blisters - will treat with invanz given above reactions # ASH - mild, hold nephrotoxins # possible renal pelvis mass - needs eval at some point; hold evaluation for now given mild ASH # sCHF, compensated clinically - echo today - hold lasix PO and aldactone but will need to restart soon - cont metop if possible # atrial fib, CHADSVasc=6; high risk for CVA - will need to hold AC given surgery - currently mildly emery - will decrease metop to 12.5 HS and hold if more emery # coagulopathy d/t warfarin - will hold warfarin, give 2U FFP and 1mg PO vit K - recheck INR tomorrow am - lasix 20mg IV after first unit of FFP # CAD - s/p PCI - hold plavix - ideally continue BB through surgery - not on statin # severe MR - currently compensated Subjective: cc abd pain; no edema, no CP; did not get abx last night; reports blister with pcn 60 years ago Objective: Vital Signs Temp Pulse Resp BP Pulse Ox 36.5 C 52 L 18 122/50 H 95 09/15/18 04:11 09/15/18 04:11 09/15/18 04:11 09/15/18 04:11 09/15/18 04:11 Laboratory Results 09/15/18 04:10 09/15/18 04:10 09/14/18 09/15/18 09/16/18 05:59 05:59 05:59 Intake Total 255 Output Total 100 Balance 155 PT 25.2 SEC (12.0-15.0) H 09/15/18 04:10 INR 2.29 (0.83-1.16) H 09/15/18 04:10 chart reviewed US reviewed high risk needing emergent surgery - Physical Exam Constitutional: no apparent distress, appears nourished Cardiovascular: irregularly irregular, other (apical systolic murmur), No diastolic murmur, No edema Respiratory: no respiratory distress, no rales or rhonchi, clear to auscultation Gastrointestinal: tenderness, costa's sign, No guarding, No rebound, No distension ICD10 Worksheet Patient Problems: Problems Problem Status Onset Acute cholecystitis Acute Chronic Disease Mgmt/Transitional Care Acute CAD (coronary artery disease) Acute Kidney stone on left side Acute Flank pain Acute Gross hematuria Acute C. difficile diarrhea Acute 12/21/15 Pleural effusion Acute Elevated troponin Acute Elevated brain natriuretic peptide (BNP) level Acute Cardiomegaly Acute
--- NOTE | 2018-09-15 08:59 | SOAPPROG ---
[facility] Progress Note Assessment/Plan: Assessment/Plan: 82M with ICM, MR, afgay presents with acute cholecystitis. Seen and examined with Dr. Euceda and discussed with hospitalist. Plan for OR today after further reversal of anticoagulation. Getting FFP, vit K , holding coumadin, plavix. Patient understands that he is a higher risk patient for surgery from a cardiac standpoint and he requests to proceed. Many abx intolerances--will be getting scheduled Invanz. ASH. Cr 1.4. Avoid nephrotoxins. Will be getting gentle diuresis after FFP. Consent in chart. Surgery later today once OR available. Again, risks discussed. S: still has RUQ pain. O: alert, nad no jaundice ctab rrr abd soft, +ruq tenderness c guarding 09/15/18 08:54 Objective: Vital Signs Temp Pulse Resp BP Pulse Ox 36.5 C 52 L 18 122/50 H 95 09/15/18 04:11 09/15/18 04:11 09/15/18 04:11 09/15/18 04:11 09/15/18 04:11 Laboratory Results 09/15/18 04:10 09/15/18 04:10 09/14/18 09/15/18 09/16/18 05:59 05:59 05:59 Intake Total 255 Output Total 100 Balance 155 PT 25.2 SEC (12.0-15.0) H 09/15/18 04:10 INR 2.29 (0.83-1.16) H 09/15/18 04:10 ICD10 Worksheet Patient Problems: Problems Problem Status Onset Acute cholecystitis Acute C. difficile diarrhea Acute 12/21/15 CAD (coronary artery disease) Acute Cardiomegaly Acute Chronic Disease Mgmt/Transitional Care Acute Elevated brain natriuretic peptide (BNP) level Acute Elevated troponin Acute Flank pain Acute Gross hematuria Acute Kidney stone on left side Acute Pleural effusion Acute
[2018-09-15] MEDS ORDERED: LISINOPRIL 2.5 MG TAB PO SCH (09:00)
[2018-09-15] MEDS: PANTOPRAZOLE SODIUM 40 MG TAB PO SCH (09:11)
[2018-09-15] MEDS: ERTAPENEM 1 GM in NS 100 ML IV SCH (09:17)
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
--- NOTE | 2018-09-15 10:49 | PDMN ---
Medical Necessity Medical [place] [facility] Gall[place] or Bile Duct Inflammation or Stone, A- 2days: 82 yo w/ acute cholecystitis, + Benjamin sign. Needs urgent surg but has sig medical hx so needs medical/cardiology clearance. IV antibx started, Patient admitted to inpatient status on PCU floor given his multitude of cardiovascular issues will need additional pre-operative eval with echo, cards consult. Important to note Pt also coagulated so holding warfarin and admin FFP and vit k. Plt count is 117. Creat 1.6. Anticipate>2MN for ongoing monitoring and tx of above. Sig hx: Systolic CHF last echo with LVEF <20%. Grade 2 diastolic dysfunction. Severe mitral regurgitation. Pulm HTN, CAD w/ stentx5 to LAD and left circumflex, chronic afib, carotid endarterectomy, HTN, Osteoarthritis, PVD, CKD stage 3, L BKA, MALORIE, sig antibx allergies.
--- NOTE | 2018-09-15 14:46 | ECHO ---
[email or web address] [address] [address] Main: [phone] Fax: Transthoracic Echocardiogram Name: ADDY FLORES MR#: [id number] Study Date: 09/15/2018 Study Time: 08:41 AM Date of : 1935 Age: 82 year(s) Height: 182.9 cm (72 in.) Weight: 72.58 kg (160 lb.) BSA: 1.94 m2 Gender: Male Examination: Echo Indication: CHF CAD Image Quality: Adequate Contrast: Requested by: Zeina Rivera BP: 122 mmHg/50 mmHg Heart Rate: Rhythm: Indication: CHF CAD Procedure Staff Senior Developer: Sharla Novak [facility] Reading Physician: Ke Martinez MD Requesting Provider: Conclusions: Left ventricle upper limits of normal. Borderline concentric LV hypertrophy. Mildly to moderately reduced systolic funtion. EF is 42 %. Global hypokinesis. Mildly dilated right ventricle. Mildly reduced RV function. The left atrium is severely dilated. The right atrium is severely dilated. There is mild thickening of the mitral valve leaflets. There is mild bileaflet mitral valve prolapse. Severe mitral valve regurgitation is present. There is mild thickening of the aortic cusps. Mild aortic valve regurgitation is present. Moderate tricuspid regurgitation is present. Right ventricular systolic pressure measures 52mmHg. Trivial pericardial effusion. Compared to a limited study from 07/07/2017, LVEF is unchanged. Compared to a complete study from 12/11/2016, mitral regurgittion, tricuspid regurgitation, and PA systolic pressure have increased. Measurements: Chambers Valvular Assessment AV/MV Valvular Assessment TV/PV Normal Normal Normal Name Value Range Name Value Range Name Value Range Ao Francesca (MM): 3.3 cm (2.2 cm-3.7 AV Vmax: 1.03 m/s (1 m/s-1.7 TR Vmax: 3.05 mm/s ( - ) cm) m/s) TR PGmax: 37 mmHg ( - ) IVSd (2D): 1.0 cm (0.6 cm-1.1 AV maxP mmHg ( - ) syst. PAP: 52 mmHg ( - ) cm) AR (PHT): 648 ms ( - ) PV Vmax: 0.68 m/s (0.6 m/s-0.9 LVDd (2D): 5.6 cm (4.2 cm-5.9 MV E Vmax: 1.07 m/s ( - ) m/s) cm) Patient: ADDY FLORES Study Date: 09/15/2018 Page 1 of 3 08:41 AM LVDs (2D): 4.7 cm (2.1 cm-4 MV meanP mmHg ( - ) PV PGmax: 2 mmHg ( - ) cm) MVA (Vmax): 3.4 m/s ( - ) LVPWd (2D): 0.9 cm (0.6 cm-1 cm) LVOTd 2.2 cm 2.2 cm mm LVEF (BP): 42 % (>=55 %) RVDd(2D): 4.4 cm (1.9 cm-3.8 cmmm) Continued Measurements: Chambers Valvular Assessment AV/MV Valvular Assessment TV/PV Name Value Name Value Name Value LADs: 5.3 cm MV Annulus: 3.8 cm CVP (est.): 15 mmHg LADs Lon.2 cm MV DecTime: 123 m/s LA Area: 44.7 cm2 MV E' Septal: 0.06 m/s LA Volume: 151 ml MV E/E' Septal: 19.20 LA Volume Index: 77.8 ml/m2 MV E/E' Lateral: 10.30 TAPSE: 1.3 cm MV VTI: 15.20 cm RA Area: 32.0 cm2 MR Vena Contracta: 0.6 cm MR ERO: 0.370 cm2 MR PISA radius: 9 mm MR Reg. Volume: 72 ml MR Reg. Fraction: 42 % AR Vmax: 4.18 cm/s Additional Vessels Name Value Ao Ascendin.0 cm Findings: Left Ventricle: Left ventricle upper limits of normal. Borderline concentric LV hypertrophy. Mildly to moderately reduced systolic funtion. EF is 42 %. Global hypokinesis. Unable to assess diastolic dysfunction. Right Ventricle: Mildly dilated right ventricle. Mildly reduced RV function. Left Atrium: The left atrium is severely dilated. Right Atrium: The right atrium is severely dilated. Mitral Valve: There is mild thickening of the mitral valve leaflets. There is mild bileaflet mitral valve prolapse.Severe mitral valve regurgitation is present. No mitral stenosis is present. Aortic Valve: The aortic valve is tri-leaflet and functions normally. There is mild thickening of the aortic cusps. Mild aortic valve regurgitation is present. No aortic valve stenosis is present. Tricuspid Valve: The tricuspid valve is normal in appearance and function. Moderate tricuspid regurgitation is present. Right ventricular systolic pressure measures 52mmHg. The pulmonary artery pressure is moderately increased. Pulmonic Valve: The pulmonic valve is normal in appearance and function. Mild pulmonic valve regurgitation is noted. Aorta: Normal size aortic root measuring 3.3 cm. Normal size ascending aorta measuring 3.0 cm. IVC: The IVC is dilated. There is less than 50% respiratory excursion. Pericardium: Trivial pericardial effusion. Patient: ADDY FLORES Study Date: 09/15/2018 Page 2 of 3 08:41 AM (No Signature Object) Patient: ADDY FLORES Study Date: 09/15/2018 Page 3 of 3 08:41 AM [id number]
[2018-09-15] MEDS ORDERED: fentaNYL 100 MCG/2 ML INJ ONE ×3 (15:20→17:00)
[2018-09-15] MEDS ORDERED: BUPIVACAINE 0.5% 30 ML SDV ONE (15:20)
[2018-09-15] MEDS ORDERED: PROPOFOL 200 MG/20 ML VIAL ONE (15:20)
[2018-09-15] MEDS ORDERED: KETOROLAC 30 MG/1 ML SDV ONE (15:22)
[2018-09-15] MEDS ORDERED: DEXAMETHASONE 4 MG/ML VIAL ONE (15:22)
[2018-09-15] MEDS ORDERED: ROCURONIUM 50 MG/5 ML VIAL ONE (15:22)
[2018-09-15] MEDS ORDERED: SUGAMMADEX SODIUM 200 MG/2 ML VIAL IVP ONE (15:22)
[2018-09-15] MEDS ORDERED: ONDANSETRON 4 MG/2 ML VIAL ONE (15:22)
[2018-09-15] MEDS ORDERED: LIDOCAINE 2% 5 ML SDV ONE (15:23)
--- NOTE | 2018-09-15 15:27 | PDANEPAE ---
ANE History of Present Illness cholecystitis ANE Past Medical History - Cardiovascular History Hx Hypertension: Yes Hx Arrhythmias: Yes Hx Chest Pain: No Hx Coronary Artery / Peripheral Vascular Disease: Yes Hx CHF / Valvular Disease: Yes Hx Palpitations: No - Pulmonary History Hx COPD: No Hx Asthma/Reactive Airway Disease: No Hx Recent Upper Respiratory Infection: No Hx Oxygen in Use at Home: No Hx Sleep Apnea: No Sleep Apnea Screening Result - Last Documented: Positive - Endocrine History Hx Diabetes: No Obesity: no - Chronic Pain History Chronic Pain: No ANE Review of Systems Review of systems is: negative Review of Systems: - Exercise capacity Exercise capacity: >=4 METS ANE Patient History - Allergies Allergies/Adverse Reactions: Penicillins Allergy (Intermediate, Verified 12/11/16 08:25) BLISTERS clindamycin Allergy (Verified 09/14/18 23:40) other antibiotics Allergy (Uncoded 09/14/18 23:40) - Home Medications Home medications: home medication list seen and reviewed Home Medications: Clopidogrel Bisulfate [Plavix (*)] 75 mg PO DAILY 01/18/15 [Last Taken 09/14/18] Omeprazole [Prilosec 20 mg] 20 mg PO DAILY 01/18/15 [Last Taken 09/14/18] Warfarin Sodium [Coumadin 2.5MG (*)] 1.25 mg PO MOWEFR@16 01/18/15 [Last Taken 09/14/18] Warfarin Sodium [Coumadin 2.5MG (*)] 2.5 mg PO SUTUTHSA@16 01/18/15 [Last Taken 09/13/18] Furosemide [Lasix 40 MG (*)] 40 mg PO DAILY 09/15/18 [Last Taken 09/14/18] Lisinopril [Zestril 2.5 mg (*)] 2.5 mg PO DAILY 09/15/18 [Last Taken 09/14/18] - NPO status NPO Since - Liquids (Date): 09/15/18 NPO Since - Liquids (Time): 01:30 NPO Since - Solids (Date): 09/14/18 - Smoking Hx Smoking Status: Never smoked - Alcohol Use Alcohol Use: Other (Patient has a daily drink after work.) ANE Labs/Vital Signs - Labs Result Diagrams: 09/15/18 04:10 09/15/18 04:10 - Vital Signs Blood Pressure: 145/74 Heart Rate: 62 Respiratory Rate: 16 O2 Sat (%): 95 Height: 182.88 cm Weight: 69.3 kg ANE Physical Exam - Airway Neck exam: FROM Mallampati Score: Class 2 Mouth exam: normal dental/mouth exam - Pulmonary Pulmonary: no respiratory distress - Cardiovascular Cardiovascular: regular rate and rhythym - ASA Status ASA Status: III ANE Anesthesia Plan Anesthesia Plan: general endotracheal anesthesia
[2018-09-15] MEDS ORDERED: HYDROmorphONE/DILAUDID 2 MG/ML INJ IVP PRN (16:08)
[2018-09-15] MEDS ORDERED: ACETAMINOPHEN 500 MG TAB PO PRN (16:08)
[2018-09-15] MEDS ORDERED: LR 500 ML IV PRN (16:08)
[2018-09-15] MEDS ORDERED: METOCLOPRAMIDE 10 MG/2 ML VIAL IVP PRN (16:08)
[2018-09-15] MEDS ORDERED: HYDROCODONE/APAP 5/325 TAB PO PRN (16:08)
[2018-09-15] MEDS ORDERED: ONDANSETRON 4 MG/2 ML VIAL IVP PRN (16:08)
[2018-09-15] MEDS ORDERED: ALBUTEROL 3 ML DEYVIAL IH PRN (16:08)
[2018-09-15] MEDS ORDERED: oxyCODONE IR 5 MG TAB PO PRN (16:08)
[2018-09-15] MEDS ORDERED: fentaNYL 100 MCG/2 ML INJ IVP PRN (16:08)
[2018-09-15] MEDS ORDERED: NALOXONE HCL 0.4 MG/ML INJ IVP PRN ×2 (16:08→17:26)
[2018-09-15] MEDS ORDERED: PROMETHAZINE HCL 25 MG/ML INJ IVP PRN (16:08)
--- NOTE | 2018-09-15 16:08 | POSTANESTH ---
Post Anesthetic Evaluation Cardiovascular Status: Normal, Stable, Tx Hyper/Hypo-tension Respiratory Status: Normal, Stable Level of Consciousness/Mental Status: Can Participate in Eval Pain Control: Adequate, Prn Tx Ordered Nausea/Vomiting Control: Adequate, Prn Tx Ordered Complications Possibly Related to Anesthesia: None Noted
--- NOTE | 2018-09-15 16:51 | POSTOPPROG ---
Post Op Note Date of Operation: 09/15/18 Surgeon: Geovanna Euceda Anesthesiologist: albaro Anesthesia: GET(General Endotracheal) Pre-op Diagnosis: acute cholecystitis Post-op Diagnosis: same Indication: 82 yo with acute rishi Procedure: lap rishi Findings: inflamed gb Inf/Abcess present in the surg proc area at time of surgery?: Yes Depth: Deep Incisional (Fascial) EBL: Minimal Specimen(s): gallbladder
[2018-09-15] MEDS ORDERED: HYDROmorphONE/DILAUDID 2 MG/ML INJ ONE (17:14)
[2018-09-15] MEDS ORDERED: LABETALOL HCL 20 MG/4 ML INJ IVP ONE (17:28)
[2018-09-15] MEDS: LABETALOL HCL 20 MG/4 ML INJ IVP PRN ×2 (17:33→17:47)
[2018-09-15 20:08] LABS: INR 1.76 (0.83-1.16); PROTIME(PATIENT) 20.6 SEC (12.0-15.0)
[2018-09-15] MEDS: METOPROLOL TARTRATE 25 MG TAB PO SCH (20:23)
--- NOTE | 2018-09-15 21:45 | GOP ---
DATE OF OPERATION: 09/15/2018 SURGEON: Geovanna Euceda MD ANESTHESIA: General. ANESTHESIOLOGIST: Sam Villeda MD. PREOPERATIVE DIAGNOSIS: Acute cholecystitis. POSTOPERATIVE DIAGNOSIS: Acute cholecystitis. PROCEDURE PERFORMED: Laparoscopic cholecystectomy. FINDINGS: Gallbladder encased in omentum and tense. SPECIMENS: Gallbladder. ESTIMATED BLOOD LOSS: 15 cc. INDICATIONS: The patient is an 82-year-old who was admitted for acute cholecystitis. DESCRIPTION OF PROCEDURE: Patient was brought into the operating room, placed supine on the table, and general anesthesia was administered. His abdomen was prepped and draped in the usual sterile fashion. I infiltrated all sites with 0.5% Marcaine prior to making an incision. Made an incision at his umbilicus. I elevated it. I inserted the Veress needle. It passed the hang drop test. His abdomen insufflated easily to a pressure of 15 mmHg. I placed a 5 mm trocar with a camera at this site. There were no injuries from Veress needle placement. Under direct vision, I placed a 10 mm subxiphoid trocar and two 5 mm trocars along the right costal margin. I elevated his gallbladder cephalad. I spent time removing the encased omentum from his gallbladder. I was then able to elevated it cephalad and laterally to expose the triangle of Calot. There was quite a bit of edema in this area. I carefully skeletonized the cystic artery and the cystic duct so that they were directly entering the gallbladder. I did use some additional clips to clip the fat as he had an elevated INR. The cystic duct and cystic artery were singly clipped towards the gallbladder, doubly clipped distally, and transected with scissors. There was a breach in the gallbladder and suction irrigation was performed. The gallbladder was removed from the gallbladder fossa with a spatula. Hemostasis achieved with electrocautery. gallbladder, The gallbladder was placed in an EndoCatch bag and retrieved via the 10 mm trocar. Abdomen inspected for hemostasis, which was achieved. Jay Jay was placed on the liver bed. Abdomen inspected again. Clips in good position. There was some oozing from the omentum which stopped. The ports removed under direct vision. Abdomen allowed to desufflate. The fascia at the 10 mm trocar site closed with 0 Vicryl, skin closed with 4-0 Monocryl. Dermabond applied. He was awakened in the operating room, extubated, transferred to PACU in stable condition. /[id number]/MODL MTDD
[2018-09-16 04:35] LABS: INR 1.81 (0.83-1.16); PROTIME(PATIENT) 21.1 SEC (12.0-15.0)
[2018-09-16 04:49] LABS: PLATELET COUNT 103 10^3/uL (150-400)
--- NOTE | 2018-09-16 08:18 | HOSPPROG ---
Hospitalist Progress Note Assessment/Plan: 82M with ICM, MR presents with acute cholecystitis. # acute cholecystitis - s/p cholecystectomy - sunita, Dr Euceda to take to the OR today # pcn, clinda allergy - reports blisters - will treat with invanz given above reactions; consider levaquin/flagyl # ASH -almost at baseline - restart all BP meds # possible renal pelvis mass - needs eval at some point; will likely defer to outpatient # sCHF, compensated clinically; no change on echo - restart lasix/aldactone/lisinopril - metop at decreased dose given bradycardia # atrial fib, CHADSVasc=6; high risk for CVA - holding warfarin - cont metop at decreased dose - hold warfarin until ok with surgery # coagulopathy d/t warfarin - s/p 2U FFP and 1mg PO vit K - hold warfarin today # CAD - s/p PCI - hold plavix unti jose david with surgery - ideally continue BB through surgery - not on statin # severe MR - currently compensated; avoid hypertension Subjective: cc - acute cholecystitis. s/p surgery last night; c/o R shoulder pain and RLQ abd pain; ate small amount of dinner; no flatus; Objective: Vital Signs Temp Pulse Resp BP Pulse Ox 36.7 C 61 18 121/65 H 93 09/16/18 07:48 09/16/18 07:48 09/16/18 07:48 09/16/18 07:48 09/16/18 07:48 Laboratory Results 09/16/18 03:28 09/16/18 03:28 09/15/18 09/16/18 09/17/18 05:59 05:59 05:59 Intake Total 255 2075 Output Total 100 1945 Balance 155 130 PT 21.1 SEC (12.0-15.0) H 09/16/18 03:28 INR 1.81 (0.83-1.16) H 09/16/18 03:28 high risk with multiple cardiac risk factors and surgery - Physical Exam Constitutional: no apparent distress, appears nourished Cardiovascular: systolic murmur (apical), irregularly irregular, bradycardia, No diastolic murmur, No tachycardia, No edema Respiratory: no respiratory distress, no rales or rhonchi, clear to auscultation Gastrointestinal: other (soft, RLQ TTP), No guarding, No rebound, No distension ICD10 Worksheet Patient Problems: Problems Problem Status Onset Acute cholecystitis Acute Chronic Disease Mgmt/Transitional Care Acute CAD (coronary artery disease) Acute Kidney stone on left side Acute Flank pain Acute Gross hematuria Acute C. difficile diarrhea Acute 12/21/15 Pleural effusion Acute Elevated troponin Acute Elevated brain natriuretic peptide (BNP) level Acute Cardiomegaly Acute
[2018-09-16] MEDS ORDERED: FUROSEMIDE 40 MG TAB PO SCH (09:00)
[2018-09-16] MEDS ORDERED: SPIRONOLACTONE 25 MG TAB PO SCH (09:00)
[2018-09-16] MEDS: PANTOPRAZOLE SODIUM 40 MG TAB PO SCH (09:01)
[2018-09-16] MEDS: ERTAPENEM 1 GM in NS 100 ML IV SCH (09:01)
[2018-09-16] MEDS: LISINOPRIL 2.5 MG TAB PO SCH (09:01)
[2018-09-16] MEDS: HYDROCODONE/APAP 5/325 TAB PO PRN ×2 (09:09→19:33)
--- NOTE | 2018-09-16 10:22 | SOAPPROG ---
SOAP Progress Note Assessment/Plan: Assessment: S: 83 y/o M with history of CHF (EF 40% in August), Afib, MR and ASH who presented to the ED on 09/14/2018 for abdominal pain. Found to have acute cholecytitis, and was admitted to the hospital for preoperative management and cholecystectomy. Taken to the OR by Dr. Euceda on 09/15/2018, after clearance by cardiology and coagulopathy reversal with FFP. The patient tolerated surgery well, and is awake, alert, and appropriate sitting up in bed this morning. He complains of some diffuse abdominal soreness and right scapular pain, but states his pain controlled. Incisions healing well. He is tolerating an oral diet. Denies flatus or BM yet. No other complaints. O: VSS stable Pleasant, Well appearing nontoxic man sitting up in bed. Atraumatic normocephalic Lungs CTA No peripheral edema, RRR Incisions intact, no surrounding erythema or ecchymosis. Abdomen soft, nondistended, bowel sounds present. Appropriately tender RUQ No focal neurological deficit appreciated. A/P: 83 y/o M s/p laparoscopic cholecystectomy POD #1. Diet as tolerated. Discussed his abdominal soreness is likely related to diaphragmatic irritation, and will likely resolve over the next few days. T bili slightly up - added on conjugated He will continue to be medically managed by hospitalist for multiple comorbidities. H/H stable Discussed with Dr. Fox - likely home tomorrow 09/16/18 10:22 09/16/18 10:23 09/16/18 10:27 09/16/18 10:37 Objective: Vital Signs Temp Pulse Resp BP Pulse Ox 36.7 C 70 18 136/72 H 93 09/16/18 07:48 09/16/18 09:00 09/16/18 07:48 09/16/18 09:00 09/16/18 07:48 Laboratory Results 09/16/18 03:28 09/16/18 03:28 09/15/18 09/16/18 09/17/18 05:59 05:59 05:59 Intake Total 255 2075 Output Total 100 1945 75 Balance 155 130 -75 PT 21.1 SEC (12.0-15.0) H 09/16/18 03:28 INR 1.81 (0.83-1.16) H 09/16/18 03:28 ICD10 Worksheet Patient Problems: Problems Problem Status Onset Acute cholecystitis Acute C. difficile diarrhea Acute 12/21/15 CAD (coronary artery disease) Acute Cardiomegaly Acute Chronic Disease Mgmt/Transitional Care Acute Elevated brain natriuretic peptide (BNP) level Acute Elevated troponin Acute Flank pain Acute Gross hematuria Acute Kidney stone on left side Acute Pleural effusion Acute
[2018-09-16] MEDS ORDERED: POLYETHYLENE GLYCOL 3350 17 GM PKT PO PRN (10:40)
[2018-09-16] MEDS ORDERED: BISACODYL 10 MG SUPP PR PRN (10:40)
[2018-09-16] MEDS: SENNOSIDES/DOCUSATE SODIUM TAB PO SCH (21:46)
[2018-09-16] MEDS: METOPROLOL TARTRATE 25 MG TAB PO SCH (21:46)
[2018-09-17] MEDS: HYDROCODONE/APAP 5/325 TAB PO PRN ×3 (00:32→10:57)
[2018-09-17 04:45] LABS: INR 1.86 (0.83-1.16); PROTIME(PATIENT) 21.5 SEC (12.0-15.0)
[2018-09-17 05:19] LABS: PLATELET COUNT 97 10^3/uL (150-400)
--- NOTE | 2018-09-17 09:22 | SOAPPROG ---
SOAP Progress Note Assessment/Plan: Assessment/Plan: 83yo M s/p lap rishi POD #2 for acute cholecystitis. Comorbidities include CHF, A fib, mitral regurg and ASH Restart anticoag Pain well controlled with PO pain meds Tolerating a regular diet without N/V/D Passing flatus, no BM No complaints this am. Appreciate management of comorbidites by hospitalists Dispo: clear for DC when cleared by hospitalists S: no complaints today. passing flatus. Eating breakfast O: VSS stable Pleasant, Well appearing nontoxic man sitting up in bed, NAD No increased WOB Incisions CDI Abdomen softly distended (patient reports this is baseline), bowel sounds present. Nontender to deep palpation 09/17/18 09:48 09/19/18 08:41 Objective: Vital Signs Temp Pulse Resp BP Pulse Ox 36.6 C 53 L 16 135/69 H 97 09/17/18 07:39 09/17/18 07:39 09/17/18 07:39 09/17/18 07:39 09/17/18 07:39 Laboratory Results 09/17/18 03:58 09/17/18 03:58 09/16/18 09/17/18 09/18/18 05:59 05:59 05:59 Intake Total 2075 1190 Output Total 1945 1225 Balance 130 -35 PT 21.5 SEC (12.0-15.0) H 09/17/18 03:58 INR 1.86 (0.83-1.16) H 09/17/18 03:58 ICD10 Worksheet Patient Problems: Problems Problem Status Onset Acute cholecystitis Acute C. difficile diarrhea Acute 12/21/15 CAD (coronary artery disease) Acute Cardiomegaly Acute Chronic Disease Mgmt/Transitional Care Acute Elevated brain natriuretic peptide (BNP) level Acute Elevated troponin Acute Flank pain Acute Gross hematuria Acute Kidney stone on left side Acute Pleural effusion Acute
--- NOTE | 2018-09-17 09:55 | PDIAF ---
- Diagnosis Diagnosis: acute cholecystitis Code Status: Full Code - Medication Management Discharge Medications: electronically signed and located in the Home Medication List. - Orders Services needed: Home Care, Registered Nurse, Certified [place], Physical Therapy, Occupational Therapy Home Care Face to Face: I certify that this patient was under my care and that I had the required [id number] encounter meeting the encounter requirements on the discharge day. My findings support the fact that the patient is homebound as defined in Home Care Face to Face Continued: CMS Chapter 7 Medicare Benefits Manual 30.1.1 , The condition of the patient is such that there exists a normal inability to leave home and consequently, leaving home would require a considerable and taxing effort. Isolation Type: None Diet Recommendation: low fat Additional Instructions: Dr. Euceda post-op sheet. Avoid heavy lifting, pushing or pulling >15lbs x 2 weeks. Low fat diet x 2 weeks. Follow-up with Dr. Euceda or Lizzeth Castro PA-C in 2 weeks for routine post-op check. Call our office to make an appointment. Call our office with any worsening symptoms, questions or concerns. - Labs/Radiology BMP Date: 09/20/18 CBC w/diff Date: 09/20/18 PT/INR Date: 09/20/18 - Follow Up Care Current Providers and Referrals: Geovanna Euceda MD [Medical Doctor] - follow up in 2 weeks Tien Woodall MD [Primary Care Provider] - As per Instructions Robert Berg MD [Medical Doctor] - ([facility] should call you to schedule an appointment for this week. If not, please call [facility] to try to get an appointment on this Monday, 09/21)
[2018-09-17] MEDS: ERTAPENEM 1 GM in NS 100 ML IV SCH (10:28)
[2018-09-17] MEDS: PANTOPRAZOLE SODIUM 40 MG TAB PO SCH (10:33)
[2018-09-17] MEDS: SENNOSIDES/DOCUSATE SODIUM TAB PO SCH (10:34)
[2018-09-17] MEDS: LISINOPRIL 2.5 MG TAB PO SCH (10:34)
--- NOTE | 2018-09-17 10:58 | ASMTLACE ---
TINE Length of stay for Answers: 2 days current admission Acuity / Level of Answers: Yes Care: Did the patient have an inpatient admission? Comorbidities - select Answers: Congestive heart failure all that apply # of Emergency department Answers: 0 visits in the last 6 months Score: 7 Date Signed: 09/17/2018 10:57 AM Electronically Signed By:Marlin Wick RN
--- NOTE | 2018-09-17 10:59 | ASMTDCNOTE ---
Case Management Discharge Discharge Order Complete? Answers: Yes Patient to Obtain Answers: Independently Medications Transportation Arranged Answers: Family/Friends Faxed Final Orders Answers: Yes Discharge Comments Notes: Patient discharged home. [facility] will follow for home PT. Patient's daughter available for support. Date Signed: 09/17/2018 10:58 AM Electronically Signed By:Marlin Wick RN
[2018-09-17 11:41] VITALS: BP 143/77
--- NOTE | 2018-09-17 17:27 | GDS ---
ALL DIAGNOSES: 1. Acute cholecystitis, status post cholecystectomy by Dr. Euceda. 2. Penicillin, as well as clindamycin allergies. 3. Mild acute kidney injury. 4. Possible renal pelvis mass, needing outpatient followup. 5. Systolic congestive heart failure, which is currently compensated. 6. Atrial fibrillation. 7. Coagulopathy due to warfarin. 8. Bradycardia. 9. Coronary artery disease, status post percutaneous coronary intervention. 10. Severe mitral regurgitation. HOSPITAL COURSE: This is an 82-year-old man with severe heart disease, who presented with acute chol ecystitis. His coagulopathy due to warfarin was reversed with 2 units of FFP. He underwent successf ul cholecystectomy with pathology pending, however, grossly showed an inflamed gallbladder. He was t reated with Invanz given his multiple antibiotic allergies. He tolerated this quite well. Initially , his cardiac medications were held; however, those were restarted. These include metoprolol 12.5 b. i.d. (this was decreased from 25 mg b.i.d. given his borderline bradycardia), Lasix 20 mg daily (this was decreased from 40 mg daily given his poor p.o. intake), spironolactone 25 mg p.o. daily, lisino pril 2.5 mg p.o. daily. He has been restarted on his anticoagulant, including warfarin, after discus miller with Dr. Euceda. Also have restarted his Plavix. Will recheck labs 3 days after discharge. He will follow up with Dr. Berg 4 days after discharge. He will need a followup CT urogram given abnormal findings to evaluate a possible renal pelvis mass. This will be deferred to his primary care physician, given multiple fluid shifts here and feeling th at IV contrast would be safer when he is closer to steady state. Home health care has been ordered for him. BILLING: I spent more than 30 minutes on the day of discharge. ADDENDUM: I am holding his blood thinners on discharge given his mild thrombocytopenia. These shoul d be restarted as an outpatient if his platelets improve. Copy requested to: Dr. Berg Primary care physician /[id number]/MODL
== END 2018-09-17 13:05 | disposition home health service (06) | DRG 418 ==
LOC: F2W 09-15 00:45
PROVIDERS: ADMIT Family Medicine; ATTEND Family Medicine
PROC: 30233L1 Transfusion of Nonautologous Fresh Plasma into Peripheral Vein, Percutaneous Approach (ICD-10-PCS; 2018-09-15)
PROC: 0FT44ZZ Resection of Gallbladder, Percutaneous Endoscopic Approach (ICD-10-PCS; principal; 2018-09-15 13:00)
DX: K81.0 Acute cholecystitis (principal); I13.0 Hypertensive heart and chronic kidney disease with heart failure and stage 1 through stage 4 chronic kidney disease, or unspecified chronic kidney disease; I50.22 Chronic systolic (congestive) heart failure; N17.9 Acute kidney failure, unspecified; D68.4 Acquired coagulation factor deficiency; N18.3 Chronic kidney disease, stage 3 (moderate); D41.10 Neoplasm of uncertain behavior of unspecified renal pelvis; I48.2 Chronic atrial fibrillation; R00.1 Bradycardia, unspecified; I25.10 Atherosclerotic heart disease of native coronary artery without angina pectoris; I34.0 Nonrheumatic mitral (valve) insufficiency; I25.2 Old myocardial infarction; I73.9 Peripheral vascular disease, unspecified; N40.0 Benign prostatic hyperplasia without lower urinary tract symptoms; K21.9 Gastro-esophageal reflux disease without esophagitis; Z79.01 Long term (current) use of anticoagulants; Z88.0 Allergy status to penicillin; Z96.649 Presence of unspecified artificial hip joint; Z95.5 Presence of coronary angioplasty implant and graft
CPT/HCPCS: 84484-PO; 96374; 97116-GP; 97161-GP; G8978-GP-CK; G8979-GP-CI; G8980-GP-CI; J1100; J1170; J1335; J1885; J1940; J2405; J2704; J3010; P9016; P9017

== ENCOUNTER → 2018-09-21 | Outpatient (CLI) | payer OTHER, MEDICARE | LOC: BHCLAF 10:45 | PROVIDERS: ATTEND Internal Medicine Cardiovascular Disease | DX: I48.91 Unspecified atrial fibrillation (principal); I25.10 Atherosclerotic heart disease of native coronary artery without angina pectoris | CPT/HCPCS: 93005-PO ==